=== PATIENT | female | born 1985 | race Caucasian/White ===

== ENCOUNTER → 2019-09-24 | Outpatient (CLI) | payer OTHER ==
[~2019-09-24] MED LIST: FERROUS SU325 MG/TAB PO; IBU600 MG PO; MOTRIN 600600 MG/TAB PO; PERCOCET 325 MG1 TA2 PO; PRENATAL1 TA7 PO
== END ==
LOC: ZCOL.LAB 08:00
DX: Z20.828 Contact with and (suspected) exposure to other viral communicable diseases (principal)

== ENCOUNTER 2019-09-28 08:38 | Inpatient (IN) | payer OTHER ==
[2019-09-28] VITALS (19 sets, daily range): BP systolic 100–135; BP diastolic 54–94; PULSE 64–114; TEMP 97.5–98.7
[~2019-09-28] VITALS: Ht 167.6 cm; Wt 88.6 kg
[~2019-09-28 08:38] MED LIST changes: -IBU600 MG PO
--- NOTE | 2019-09-28 08:45 | NUR ---
Pt arrives on unit ambulatory with spouse for scheduled c/s for twin . Twin B breech presentation. Changed into clean gown. EFM x2 and toco applied. VSS. Admission assessment completed. Consents signed. IV started in LW. Labs drawn. LR infusing. Skin prep performed. Denies vaginal bleeding, LOF, regular ctx, and reports GFM. 0950-Pt to OR
[2019-09-28 09:52] LABS: BASO # 0.1 (0.0-0.2); BASO % 0.7 % (0.0-2.0); EOS # 0.1 (0.0-0.7); EOS % 1.1 % (0-4.0); GRAN # 6.4 (1.4-6.5); GRAN % 73.5 % (42.2-75.2); HEMOGLOBIN 11.2 g/dl (12.5-16.0); LYMPH # 1.5 (1.2-3.4); LYMPH % 17.4 % (20.0-51.0); MEAN CELL VOLUME 94 fl (80.0-100.0); MEAN CORPUSCULAR HEMOGLOBIN 30 pg (27.0-31.0); MEAN CORPUSCULAR HGB CONC 32 g/dl (33.0-37.0); MEAN PLATELET VOLUME 11.2 fl (7.4-10.4); MONO # 0.6 (0.1-0.6); MONO % 6.3 % (1.7-9.3); PLATELET COUNT 172 K/mm3 (130-400); RED BLOOD COUNT 3.74 M/mm3 (4.10-5.30); REDCELL DISTRIBUTION WIDTH-CV 14.6 % (11.5-14.5)
[2019-09-29 05:30] VITALS: BP 108/64; PULSE 87; TEMP 98.5
[2019-09-29 08:14] LABS: HEMATOCRIT 27.2 % (37.0-47.0)
[2019-09-29 08:16] VITALS: BP 118/58; PULSE 92; TEMP 98.2
[2019-09-29 13:00] VITALS: BP 119/72; PULSE 89; TEMP 98.1
[2019-09-29 18:00] VITALS: BP 111/65; PULSE 79; TEMP 98.3
[2019-09-29 19:50] VITALS: BP 130/72; PULSE 87; TEMP 97.7
[2019-09-30 09:13] VITALS: BP 116/68; PULSE 86; TEMP 98.2
[2019-09-30] MEDS ORDERED: PERCOCET 325 MG1 TA2 PO (09:35)
[2019-09-30] MEDS ORDERED: IBU600 MG PO (09:35)
[2019-09-30 16:00] VITALS: BP 122/71; PULSE 82; TEMP 97.7
[2019-09-30 20:30] VITALS: BP 113/65; PULSE 88; TEMP 97.7
[2019-10-01 07:30] VITALS: BP 117/65; PULSE 86; TEMP 97.7
--- NOTE | 2019-10-01 08:52 | NUR ---
Initial visit; Mom thanked for offering congratulations and God's blessings for the of her twin boys. thanked Mom for choosing [facility].
== END 2019-10-01 15:10 | disposition home or self-care (01) | DRG 788 ==
LOC: OB 08:38
PROVIDERS: ADMIT Obstetrics & Gynecology
PROC: 10D00Z1 Extraction of Products of Conception, Low, Open Approach (ICD-10-PCS; principal; 2019-09-28)
PROC: 0J9C0ZZ Drainage of Pelvic Region Subcutaneous Tissue and Fascia, Open Approach (ICD-10-PCS; 2019-09-28)
PROC: 0HB7XZZ Excision of Abdomen Skin, External Approach (ICD-10-PCS; 2019-09-28)
DX: O30.043 Twin pregnancy, dichorionic/diamniotic, third trimester (principal); O32.1XX1 Maternal care for breech presentation, fetus 1; Z37.2 Twins, both liveborn; O32.2XX2 Maternal care for transverse and oblique lie, fetus 2; O34.83 Maternal care for other abnormalities of pelvic organs, third trimester; N83.201 Unspecified ovarian cyst, right side; Z3A.36 36 weeks gestation of pregnancy
CPT/HCPCS: J0690; J1885; J2175; J2370; J2405; J2590; J3010; J7120